=== PATIENT | female | born 1995 | race Two or more races ===

== ENCOUNTER 2019-04-10 20:21 | Emergency (ER) | payer OTHER ==
[~2019-04-10] VITALS: Ht 152.4 cm; Wt 43.1 kg
[~2019-04-10 20:21] MED LIST: KETO10TA2 PO; PHENERGAN25 MG PO; PRENATAL TABLE1 EAC4 PO
== END 2019-04-10 22:40 | disposition home or self-care (01) ==
LOC: ER 20:21
DX: J11.1 Influenza due to unidentified influenza virus with other respiratory manifestations (principal); B96.0 Mycoplasma pneumoniae [M. pneumoniae] as the cause of diseases classified elsewhere